=== PATIENT | male | born 1965 | race American Indian/Alaskan Native ===

== ENCOUNTER 2018-07-20 06:25 | Emergency (ER) | payer MEDICAID ==
[2018-07-20 06:26] VITALS: BMI 20.3
[2018-07-20 07:04] VITALS: O2SAT 98
--- NOTE | 2018-07-20 07:44 | ED PDOC ---
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 Patient complains of chest pain for the past few weeks. She had been admitted to [facility] and prescribed antibiotics for 4 to 6 weeks but did not follow up. Patient denies any cough, shortness of breath and fever. PMD: non provided Past Medical History Reviewed: Historical Data, Nursing Documentation, Vital Signs Vital Signs: Last Vital Signs Temp 98.8 F 07/20/18 06:34 Pulse 68 07/20/18 06:34 Resp 17 07/20/18 06:34 BP 119/71 07/20/18 06:34 Pulse Ox 98 07/20/18 07:46 - Medical History PMH: Hepatitis (C), Seizures Other PMH: questionable endocarditis - Surgical History Surgical History: No Surg Hx - Family History Family History: States: Unknown Family Hx - Social History Current smoker - smoking cessation education provided: Yes Alcohol: Social - Home Medications Home Medications: Ambulatory Orders Medication Instructions Recorded Ibuprofen [Motrin] 600 mg PO Q6 PRN #20 tab 11/08/14 - Allergies Allergies/Adverse Reactions: Allergies Allergy/AdvReac Type Severity Reaction Status Date / Time No Known Allergies Allergy Verified 11/08/14 03:53 Review of Systems ROS Statement: Except As Marked, All Systems Reviewed And Found Negative Constitutional: Negative for: Fever Cardiovascular: Positive for: Chest Pain Respiratory: Negative for: Cough, Shortness of Breath Physical Exam - Reviewed Nursing Documentation Reviewed: Yes Vital Signs Reviewed: Yes - Physical Exam Appears: Positive for: Non-toxic, No Acute Distress Head Exam: Positive for: ATRAUMATIC, NORMOCEPHALIC Skin: Positive for: Normal Color, Warm, Dry Cardiovascular/Chest: Positive for: Regular Rate, Rhythm. Negative for: Murmur Respiratory: Positive for: Normal Breath Sounds. Negative for: Wheezing Gastrointestinal/Abdominal: Positive for: Normal Exam, Soft. 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 Negative for: Pedal Edema, Swelling Neurologic/Psych: Positive for: Alert, Oriented (x3) - ECG O2 Sat by Pulse Oximetry: 98 (RA) Pulse Ox Interpretation: Normal Medical Decision Making Medical Decision Making: Time: 729 Initial Plan: --EKG --Troponin I --Chest X-Ray ----- Scribe Attestation: Documented by Patsy Neil, acting as a scribe for Jarrod Esparza MD. Provider Scribe Attestation: All medical record entries made by the Scribe were at my direction and personally dictated by me. I have reviewed the chart and agree that the record accurately reflects my personal performance of the history, physical exam, medical decision making, and the department course for this patient. I have also personally directed, reviewed, and agree with the discharge instructions and disposition. Disposition - Clinical Impression Clinical Impression: Substance abuse - Patient ED Disposition Is Patient to be Admitted: No Counseled Patient/Family Regarding: Studies Performed, Diagnosis, Need For Followup - Disposition Disposition: Discharged/Transfer to Law Enforcement Disposition Time: 08:48 Condition: FAIR Additional Instructions: Medically and psychiatrically stable for incarceration Instructions: General (DC), Drug Abuse and Drug Addiction (DC) Forms: Monogram (Georgian)
[2018-07-20 09:27] VITALS: BP 122/70; PULSE 78; RESP 16; TEMP 98.2
--- NOTE | 2018-07-20 11:35 | RAD ---
Date of service: 07/20/2018 HISTORY: Cough COMPARISON: 11/08/2014. FINDINGS: LUNGS: No active pulmonary disease. PLEURA: No significant pleural effusion identified, no pneumothorax apparent. CARDIOVASCULAR: Normal. OSSEOUS STRUCTURES: No significant abnormalities. VISUALIZED UPPER ABDOMEN: Normal. OTHER FINDINGS: None. IMPRESSION: No active disease. No significant interval change compared to the prior examination(s).
--- NOTE | 2018-07-20 13:52 | CARD ---
APPROVED REPORT Date of service: 07/20/2018 EKG Measurement Heart [id number] <Conclusion> Normal sinus rhythm Normal ECG
== END 2018-07-20 09:15 | disposition home or self-care (01) ==
LOC: H.ER 06:25
DX: F19.10 Other psychoactive substance abuse, uncomplicated (principal); R07.89 Other chest pain; B19.20 Unspecified viral hepatitis C without hepatic coma; F17.200 Nicotine dependence, unspecified, uncomplicated